=== PATIENT | male | born 1955 | race Caucasian/White ===

== ENCOUNTER → 2022-06-10 10:23 | Outpatient (CLI) | payer MEDICARE, SELFPAY ==
--- NOTE | ~2022-06-10 | XR_ITS ---
Left wrist Technique: PA, oblique, and lateral views were obtained. Clinical History: Pain, ligament tear Findings: No acute fracture or dislocation is seen. Osseous alignment is anatomic. There is mild dege nerative change at the first CMC joint. Soft tissues are unremarkable. 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 Reviewed, dictated and finalized at [facility]. 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
== END ==
DX: S69.82XD Other specified injuries of left wrist, hand and finger(s), subsequent encounter (principal); X58.XXXD Exposure to other specified factors, subsequent encounter
CPT/HCPCS: 73110